=== PATIENT | male | born 1980 | race Caucasian/White ===

== ENCOUNTER 2017-08-16 12:50 | Emergency (ER) | payer MEDICAID ==
[2017-08-16 12:58] VITALS: RESP 16
--- NOTE | 2017-08-16 13:55 | CPEKG ---
Heart Rate: 78 RR Interval: 769 P-R Interval: 124 QRSD Interval: 110 QT Interval: 388 QTC Interval: 442 P [place]: 74 QRS [place]: 49 T Wave [place]: 33 EKG Severity - ABNORMAL ECG - EKG Impression: SINUS RHYTHM EKG Impression: NONSPECIFIC INTRAVENTRICULAR CONDUCTION DELAY Electronically Signed By: Alcides Andrea 18-Aug-2017 08:02:31
--- NOTE | 2017-08-16 14:09 | EDPHY ---
H & P Stated Complaint: Fever, sob, confusion, dizziness, chest pain for 5 days. - Personal History Current Tetanus Diphtheria and Acellular Pertussis (TDAP): Yes - Medical/Surgical History Hx Asthma: No Hx Chronic Respiratory Disease: No Hx Diabetes: No Hx Cardiac Disease: No Hx Renal Disease: No Hx Cirrhosis: No Hx Alcoholism: No Hx HIV/AIDS: No Hx Splenectomy or Spleen Trauma: No Other PMH: ANXIETY FACIAL RECONSTRUCTION R BBB - Social History Smoking Status: Current every day smoker Time Seen by Provider: 08/16/17 13:50 HPI/ROS: CHIEF COMPLAINT: "I think I have the flu" HISTORY OF PRESENT ILLNESS: 37-year-old immunocompetent male with no influenza vaccination this season complaining of 6 days of flu-like symptoms including high dyspnea, cough, chest pain. No fluids vaccination. No abdominal pain. No nausea or vomiting. No diarrhea PRIMARY CARE PROVIDER: Adrian suarez REVIEW OF SYSTEMS: A ten point review of systems was performed and is negative with the exception of the items mentioned in the HPI PAST MEDICAL & SURGICAL HISTORY: Anxiety SOCIAL HISTORY:Half pack per day tobacco. PHYSICAL EXAM (Prior to examination, patient consented to physical exam, hands were washed and my usual and customary physical exam procedures followed) 1) GENERAL: Well-developed, well-nourished, alert and oriented. Appears nontoxic. 2) HEAD: Normocephalic, atraumatic 3) HEENT: Pupils equal, round, reactive to light bilaterally. Sclera anicteric. Nasopharynx, oropharynx, clear, no lesions. No tonsillar enlargement or exudate Ears bilaterally with normal tympanic membranes. 4) NECK: Full range of motion, no meningeal signs. 5) LUNGS: Clear auscultation bilaterally, no wheezes, no rhonchi, no retractions. 6) HEART: Regular rate and rhythm, no murmur, no heave, no gallop. 7) ABDOMEN: No guarding, no rebound, no focal tenderness, negative McBurney's, negative Lechuga's, negative Rovsing's, negative peritoneal sign, 8) MUSCULOSKELETAL: Moving all extremities, no focal areas of tenderness, no obvious trauma. No peripheral edema or discoloration. 9) BACK: No CVA tenderness, no midline vertebral tenderness, no fluctuance, no step-off, no obvious trauma, no visual or palpable abnormality. 10) SKIN: No rash, no petechiae. 11) Psychiatric: Patient is oriented X 3, there is no agitation. DIFFERENTIAL DIAGNOSIS: In no particular order, including but not limited to myocardial ischemia, pulmonary embolus, chest wall pain, pleural inflammation and pulmonary infectious causes. (Nivia Bowman) Constitutional: Initial Vital Signs Temperature (C) 37 C 08/16/17 12:55 Heart Rate 88 08/16/17 12:55 Respiratory Rate 16 08/16/17 12:55 Blood Pressure 115/69 08/16/17 12:55 O2 Sat (%) 96 08/16/17 12:55 O2 Delivery Mode Room Air Allergies/Adverse Reactions: No Known Allergies Allergy (Unverified 08/17/13 17:34) Home Medications: Medication Instructions Recorded Albuterol [Proventil Inhaler HFA 1 - 2 puffs IH Q4PRN PRN #1 mdi 08/16/17 (*)] Benzonatate [Tessalon Pearles (RX)] 200 mg PO TID PRN #15 cap 08/16/17 Clonazepam 08/16/17 Ipratropium 0.06% Nasal [Atrovent 2 sprays EACHNARE QID #1 mdi 08/16/17 0.06% Nasal (RX)] Wellbutrin 100mg (*) 08/16/17 Medical Decision Making ED Course/Re-evaluation: I did not see this patient while he was in the emergency department. However his care was discussed with the PA while the patient was in the department. I agree with treatment plan and management (Jean-Pierre Rose) 4:13 p.m.: Re-evaluation. He is feeling improvement. He appears well. Discussed his diagnostic studies which include normal sinus rhythm EKG, negative troponin, negative D-dimer, chest x-ray showing no infiltrate. I think that negative D-dimer adequately excludes pulmonary embolus in this patient whom I have a low to medium risk suspicion for pulmonary embolus. Doubt CT in the presence of symptoms for the past several days. No infiltrate on chest x-ray. We discussed more than likely viral etiology. We discussed possible influenza etiology. Symptoms have been occurring for several days now. We discussed supportive care and discharge home. At this time I do not think there is definitive indication for hospital admission; he is maintaining normal saturations, breathing comfortably, lungs are clear bilaterally, no immunosuppressed comorbidities. Discussed his laboratory results. I recommended recheck laboratory studies with his primary care physician at [facility]. Plan will be discharge home with medication for supportive care of his URI symptoms. Recommend smoking cessation. Definitely if he develops new or worsening symptoms to return to the ER immediately. He and his partner feel comfortable being discharged. Care of patient under supervision of secondary supervising physician Dr Jean-Pierre Rose. (Nivia Bowman) - Data Points Laboratory Results: Laboratory Results 08/16/17 13:55 08/16/17 13:55 Departure - Departure Disposition: Home, Routine, Self-Care Clinical Impression: Bronchitis Condition: Good Instructions: Acute Bronchitis (ED) Additional Instructions: Return to the emergency department immediately for change in breathing habits, change in voice, change in swallowing habits, change in mental status, or any other symptoms that concern you. Referrals: Flaca Cordova PA [Primary Care Provider] - 2-3 days, call for appt. Prescriptions: Albuterol [Proventil Inhaler HFA (*)] 1 - 2 puffs IH Q4PRN PRN #1 mdi PRN Reason: Cough, Moderate Benzonatate [Tessalon Pearles (RX)] 200 mg PO TID PRN #15 cap PRN Reason: Cough, Moderate Ipratropium 0.06% Nasal [Atrovent 0.06% Nasal (RX)] 2 sprays EACHNARE QID #1 mdi
[2017-08-16 14:13] LABS: PLATELET COUNT 107 10^3/uL (150-400)
[2017-08-16] MEDS ORDERED: ACETAMINOPHEN 500 MG TAB ONE (14:38)
[2017-08-16 16:23] VITALS: BP 122/84; PULSE 81; TEMP 98.6; O2SAT 97
== END 2017-08-16 16:31 | disposition home or self-care (01) ==
DX: J40 Bronchitis, not specified as acute or chronic (principal); F17.200 Nicotine dependence, unspecified, uncomplicated